=== PATIENT | male | born 1945 | race Caucasian/White ===

== ENCOUNTER 2017-07-22 20:37 | Emergency (ER) | payer MEDICARE ==
[~2017-07-22] VITALS: Ht 177.8 cm; Wt 135.5 kg
[~2017-07-22 20:37] MED LIST: ASPIRIN E.C. 8181 MG PO; CRESTOR40 MG PO; FISH OIL500 MG PO; FORT1000TA PO; LEVEMIR SQ; LISINOPRIL; METFORMIN1000 MG PO; MULTIPLE VITAMI1 CAP PO; NEXIUM 40MG40 MG PO; NOVOLOG 100U100 U/ML SQ; NOVOLOG FLEX100 U/ML SQ; PEPCID 20MG TAB20 MG PO; PRINIVIL40 MG PO; PROSTATE MED; TRIAM OI 0.1 80 TOP; VITAMIN D31000 IU PO
[2017-07-22 20:41] VITALS: TEMP 98.7
[2017-07-22 21:55] LABS: BASO % 0.3 % (0.0-2.0); EOS # 0.1 (0.0-0.7); EOS % 1.6 % (0-4.0); GRAN # 4.5 (1.4-6.5); GRAN % 63.7 % (42.2-75.2); HEMATOCRIT 36.9 % (42.0-52.0); LYMPH # 1.8 (1.2-3.4); MEAN CELL VOLUME 92 fl (80.0-100.0); MEAN CORPUSCULAR HEMOGLOBIN 30 pg (27.0-31.0); MEAN CORPUSCULAR HGB CONC 33 g/dl (33.0-37.0); MEAN PLATELET VOLUME 10.7 fl (7.4-10.4); MONO # 0.6 (0.1-0.6); PLATELET COUNT 143 K/mm3 (130-400); RED BLOOD COUNT 4.01 M/mm3 (4.20-5.60)
[2017-07-22 22:05] LABS: ADJUSTED CALCIUM 9.5 mg/dL (8.4-10.2); ALANINE AMINOTRANSFERASE 42 U/L (21-72); ALKALINE PHOSPHATASE 99 U/L (50-136); ANION GAP 10 mmol/L (7-16); BILIRUBIN,TOTAL 0.6 mg/dL (0.0-1.0); BLOOD UREA NITROGEN 21 mg/dL (9-20); CALCIUM 9.5 mg/dL (8.4-10.2); CARBON DIOXIDE 27 mmol/L (22-30); CHLORIDE 102 mmol/L (98-107); CREATININE, serum 0.75 mg/dL (0.66-1.25); GLUCOSE 143 mg/dL (74-106); POTASSIUM 4.1 mmol/L (3.4-5.0); SODIUM 139 mmol/L (137-145); TOTAL PROTEIN 6.9 gm/dL (6.4-8.2)
[2017-07-22 22:16] LABS: TROPONIN-I < 0.012 ng/mL (0.000-0.034)
[2017-07-22 22:40] VITALS: BP 136/65
[2017-07-22] MEDS ORDERED: ANTIVERT 25MG25 MG PO (23:03)
[2017-07-22 23:28] VITALS: PULSE 80
== END 2017-07-22 23:28 | disposition home or self-care (01) ==
LOC: COL.ER 20:37
PROVIDERS: Emergency Medicine
DX: H81.10 Benign paroxysmal vertigo, unspecified ear (principal); E11.9 Type 2 diabetes mellitus without complications; I10 Essential (primary) hypertension; E66.9 Obesity, unspecified; Z68.41 Body mass index [BMI] 40.0-44.9, adult; Z79.4 Long term (current) use of insulin; Z79.82 Long term (current) use of aspirin
CPT/HCPCS: J2405

== ENCOUNTER 2018-05-03 18:51 | Observation (INO) | payer MEDICARE ==
[~2018-05-03] VITALS: Ht 177.8 cm; Wt 133.8 kg
[~2018-05-03 18:51] MED LIST changes: +ANTIVERT 25MG25 MG PO
[2018-05-03 20:42] LABS: BASO % 0.2 % (0.0-2.0); EOS % 0.4 % (0-4.0); GRAN # 8.4 (1.4-6.5); GRAN % 81.9 % (42.2-75.2); HEMOGLOBIN 12.4 g/dl (13.5-18.0); LYMPH % 10.2 % (20.0-51.0); MEAN CELL VOLUME 92 fl (80.0-100.0); MEAN CORPUSCULAR HEMOGLOBIN 31 pg (27.0-31.0); MEAN CORPUSCULAR HGB CONC 34 g/dl (33.0-37.0); MEAN PLATELET VOLUME 10.9 fl (7.4-10.4); MONO # 0.7 (0.1-0.6); PLATELET COUNT 168 K/mm3 (130-400); RED BLOOD COUNT 4.02 M/mm3 (4.20-5.60); REDCELL DISTRIBUTION WIDTH-CV 13.2 % (11.5-14.5)
[2018-05-03 20:43] LABS: HEMATOCRIT 36.9 % (42.0-52.0)
[2018-05-03 20:51] LABS: ALBUMIN 4.2 gm/dL (3.5-5.0); BILIRUBIN,TOTAL 0.5 mg/dL (0.0-1.0); CALCIUM 9.7 mg/dL (8.4-10.2); POTASSIUM 4.8 mmol/L (3.4-5.0); TOTAL PROTEIN 7.7 gm/dL (6.4-8.2)
[2018-05-03 21:01] LABS: COLLECTION METHOD CLEAN CATCH
[2018-05-03 21:12] LABS: MUCOUS Present /lpf; PH 5 (5-8); SQUAMOUS EPITHELIAL None Seen /hpf; URINE APPEARANCE Clear; URINE BACTERIA None Seen /hpf; URINE BILIRUBIN Negative (NEGATIVE); URINE BLOOD 1+ (NEGATIVE); URINE COLOR Yellow; URINE GLUCOSE 1+ (NEGATIVE); URINE KETONE Negative (NEGATIVE); URINE LEUKOCYTE ESTERASE 2+ (NEGATIVE); URINE NITRATE Negative (NEGATIVE); URINE PROTEIN(semi-quant) Negative (NEGATIVE); URINE UROBILINOGEN Negative (NEGATIVE)
[2018-05-04] VITALS (14 sets, daily range): BP systolic 98–164; BP diastolic 32–79; PULSE 95–117; TEMP 97.8–99.2
[2018-05-05 00:44] VITALS: BP 156/65; PULSE 86; TEMP 98.4
[2018-05-05 04:00] VITALS: BP 149/69; PULSE 85; TEMP 98.3
[2018-05-05 07:35] VITALS: BP 156/72; PULSE 84; TEMP 97.8
[2018-05-05 11:39] VITALS: BP 131/83; PULSE 74; TEMP 97.6
[2018-05-05 16:54] VITALS: BP 99/59; PULSE 86; TEMP 97.9
== END 2018-05-05 18:27 | disposition home or self-care (01) ==
LOC: COL.ER 18:51 → SURG 22:58
PROVIDERS: Emergency Medicine
DX: N20.1 Calculus of ureter (principal); I10 Essential (primary) hypertension; E78.00 Pure hypercholesterolemia, unspecified; E11.9 Type 2 diabetes mellitus without complications; G47.33 Obstructive sleep apnea (adult) (pediatric); Z79.4 Long term (current) use of insulin
CPT/HCPCS: A9284; C1769; C2617; G0378; J0690; J0696; J1100; J1815; J1885; J2270; J2405; J2704; J3010; J7030; Q9967

== ENCOUNTER 2018-06-02 06:26 | Observation (INO) | payer MEDICARE ==
[2018-06-02] VITALS (11 sets, daily range): BP systolic 105–174; BP diastolic 41–80; PULSE 91–104; TEMP 97.7–98.9
[~2018-06-02] VITALS: Ht 177.8 cm; Wt 131.8 kg
[2018-06-02] MEDS ORDERED: VICTOZA6 MG/ML SQ (06:36)
[2018-06-02 07:44] LABS: BASO % 0.2 % (0.0-2.0); EOS % 0.1 % (0-4.0); GRAN # 7.9 (1.4-6.5); GRAN % 83.8 % (42.2-75.2); HEMATOCRIT 38.5 % (42.0-52.0); HEMOGLOBIN 12.8 g/dl (13.5-18.0); LYMPH % 10.1 % (20.0-51.0); MEAN CELL VOLUME 92 fl (80.0-100.0); MEAN CORPUSCULAR HEMOGLOBIN 31 pg (27.0-31.0); MEAN CORPUSCULAR HGB CONC 33 g/dl (33.0-37.0); MONO # 0.5 (0.1-0.6); MONO % 5.4 % (1.7-9.3); PLATELET COUNT 149 K/mm3 (130-400); RED BLOOD COUNT 4.18 M/mm3 (4.20-5.60); REDCELL DISTRIBUTION WIDTH-CV 13.2 % (11.5-14.5)
[2018-06-02 07:56] LABS: ALBUMIN 4.2 gm/dL (3.5-5.0); BILIRUBIN,TOTAL 0.9 mg/dL (0.0-1.0); C-REACTIVE PROTEIN 1.4 mg/dL (0.0-0.9); CALCIUM 9.4 mg/dL (8.4-10.2); CREATININE, serum 0.85 mg/dL (0.66-1.25); POTASSIUM 4.7 mmol/L (3.4-5.0); TOTAL PROTEIN 7.4 gm/dL (6.4-8.2)
[2018-06-02 08:26] LABS: COLLECTION METHOD CLEAN CATCH
[2018-06-02 08:33] LABS: PH 7 (5-8); SQUAMOUS EPITHELIAL None Seen /hpf; URINE APPEARANCE Clear; URINE BACTERIA None Seen /hpf; URINE BILIRUBIN Negative (NEGATIVE); URINE BLOOD 2+ (NEGATIVE); URINE COLOR Straw; URINE GLUCOSE 3+ (NEGATIVE); URINE KETONE 1+ (NEGATIVE); URINE LEUKOCYTE ESTERASE 2+ (NEGATIVE); URINE NITRATE Negative (NEGATIVE); URINE PROTEIN(semi-quant) Negative (NEGATIVE); URINE RBC 20-50 /hpf; URINE UROBILINOGEN Negative (NEGATIVE)
[2018-06-02] MEDS ORDERED: PRINIVIL20 MG PO (08:54)
[2018-06-03 00:33] VITALS: BP 108/50; PULSE 92; TEMP 97.8
[2018-06-03 04:22] VITALS: BP 127/52; PULSE 96; TEMP 98.6
[2018-06-03 08:23] VITALS: BP 120/56; PULSE 93; TEMP 97.9
[2018-06-03 12:05] VITALS: BP 137/54; PULSE 93; TEMP 98.1
== END 2018-06-03 13:28 | disposition home or self-care (01) ==
LOC: COL.ER 06:26 → SURG 09:01
PROVIDERS: Emergency Medicine
DX: N20.1 Calculus of ureter (principal); I10 Essential (primary) hypertension; E11.9 Type 2 diabetes mellitus without complications; E78.00 Pure hypercholesterolemia, unspecified; G47.33 Obstructive sleep apnea (adult) (pediatric)
CPT/HCPCS: C1769; C2617; G0378; J0690; J0696; J1170; J1815; J2270; J2405; J2704; J3010; J7030; Q9967

== ENCOUNTER 2018-08-25 07:55 | Emergency (ER) | payer MEDICARE ==
[~2018-08-25] VITALS: Ht 177.8 cm; Wt 135.5 kg
[~2018-08-25 07:55] MED LIST changes: +PRINIVIL20 MG PO; +VICTOZA6 MG/ML SQ
[2018-08-25] MEDS ORDERED: NOVOLIN N100 U/ML IJ (08:13)
[2018-08-25 08:49] LABS: BASO % 0.3 % (0.0-2.0); EOS # 0.1 (0.0-0.7); EOS % 1.1 % (0-4.0); GRAN % 76.2 % (42.2-75.2); HEMATOCRIT 38.2 % (42.0-52.0); HEMOGLOBIN 12.6 g/dl (13.5-18.0); LYMPH # 1.3 (1.2-3.4); LYMPH % 14.1 % (20.0-51.0); MEAN CELL VOLUME 90 fl (80.0-100.0); MEAN CORPUSCULAR HEMOGLOBIN 30 pg (27.0-31.0); MEAN CORPUSCULAR HGB CONC 33 g/dl (33.0-37.0); MEAN PLATELET VOLUME 11.1 fl (7.4-10.4); MONO # 0.7 (0.1-0.6); MONO % 7.8 % (1.7-9.3); PLATELET COUNT 140 K/mm3 (130-400); RED BLOOD COUNT 4.24 M/mm3 (4.20-5.60); REDCELL DISTRIBUTION WIDTH-CV 13.5 % (11.5-14.5)
[2018-08-25 09:32] LABS: ALBUMIN 3.8 gm/dL (3.5-5.0); BILIRUBIN,TOTAL 0.4 mg/dL (0.0-1.0); C-REACTIVE PROTEIN 1.4 mg/dL (0.0-0.9); CALCIUM 9.6 mg/dL (8.4-10.2); CREATININE, serum 0.84 mg/dL (0.66-1.25); POTASSIUM 4.3 mmol/L (3.4-5.0)
[2018-08-25 10:23] LABS: COLLECTION METHOD CLEAN CATCH
[2018-08-25 10:36] LABS: MUCOUS Present /lpf; PH 5 (5-8); SQUAMOUS EPITHELIAL 0-2 /hpf; URINE APPEARANCE Clear; URINE BACTERIA None Seen /hpf; URINE BILIRUBIN Negative (NEGATIVE); URINE BLOOD Negative (NEGATIVE); URINE COLOR Yellow; URINE GLUCOSE Negative (NEGATIVE); URINE KETONE Negative (NEGATIVE); URINE LEUKOCYTE ESTERASE 1+ (NEGATIVE); URINE NITRATE Negative (NEGATIVE); URINE PROTEIN(semi-quant) 2+ (NEGATIVE)
[2018-08-25] MEDS ORDERED: PRINIVIL20 MG PO (11:06)
[2018-08-25] MEDS ORDERED: DOXYCYCLINE 10100 MG PO (11:06)
[2018-08-25] MEDS ORDERED: CRESTOR40 MG PO (11:06)
[2018-08-25] MEDS ORDERED: AMOXICILLIN 8751 TAB PO (11:06)
[2018-08-25 11:20] VITALS: BP 133/75; PULSE 84; TEMP 97
== END 2018-08-25 11:20 | disposition home or self-care (01) ==
LOC: COL.ER 07:55
PROVIDERS: Emergency Medicine; Physician Assistant
DX: L03.115 Cellulitis of right lower limb (principal); E78.5 Hyperlipidemia, unspecified; N20.0 Calculus of kidney; E11.9 Type 2 diabetes mellitus without complications; N39.0 Urinary tract infection, site not specified; Z79.4 Long term (current) use of insulin; Z79.82 Long term (current) use of aspirin
CPT/HCPCS: J7030

== ENCOUNTER 2019-06-09 18:06 | Observation (INO) | payer MEDICARE ==
[~2019-06-09] VITALS: Ht 177.8 cm; Wt 125.7 kg
[~2019-06-09 18:06] MED LIST changes: +AMOXICILLIN 8751 TAB PO; +DOXYCYCLINE 10100 MG PO; +NOVOLIN N100 U/ML IJ
[2019-06-09 18:23] LABS: BASO % 0.2 % (0.0-2.0); EOS # 0.1 (0.0-0.7); EOS % 1.5 % (0-4.0); GRAN # 5.4 (1.4-6.5); GRAN % 63.8 % (42.2-75.2); HEMATOCRIT 40.7 % (42.0-52.0); HEMOGLOBIN 13.5 g/dl (13.5-18.0); LYMPH # 2.1 (1.2-3.4); LYMPH % 25.1 % (20.0-51.0); MEAN CELL VOLUME 93 fl (80.0-100.0); MEAN CORPUSCULAR HEMOGLOBIN 31 pg (27.0-31.0); MEAN CORPUSCULAR HGB CONC 33 g/dl (33.0-37.0); MEAN PLATELET VOLUME 11.4 fl (7.4-10.4); MONO # 0.8 (0.1-0.6); PLATELET COUNT 164 K/mm3 (130-400); REDCELL DISTRIBUTION WIDTH-CV 12.7 % (11.5-14.5)
[2019-06-09 18:44] LABS: ALANINE AMINOTRANSFERASE 25 U/L (21-72); ALBUMIN 4.4 gm/dL (3.5-5.0); ALKALINE PHOSPHATASE 102 U/L (50-136); ANION GAP 9 mmol/L (7-16); AST,SGOT 30 U/L (15-37); BILIRUBIN,TOTAL 0.4 mg/dL (0.0-1.0); BLOOD UREA NITROGEN 27 mg/dL (9-20); CALCIUM 10.8 mg/dL (8.4-10.2); CARBON DIOXIDE 29 mmol/L (22-30); CHLORIDE 101 mmol/L (98-107); CREATININE, serum 0.98 (0.66-1.25); GLUCOSE 150 mg/dL (74-106); LIPASE 209 U/L (23-300); POTASSIUM 4.6 mmol/L (3.4-5.0); SODIUM 138 mmol/L (137-145); TOTAL PROTEIN 7.5 gm/dL (6.4-8.2)
[2019-06-09 18:51] LABS: C-REACTIVE PROTEIN < 0.5 mg/dL (0.0-0.9)
[2019-06-09 19:33] LABS: COLLECTION METHOD CLEAN CATCH
[2019-06-09 19:41] LABS: MUCOUS Present /lpf; PH 5 (5-8); SQUAMOUS EPITHELIAL 0-2 /hpf; URINE APPEARANCE Clear; URINE BACTERIA None Seen /hpf; URINE BILIRUBIN Negative (NEGATIVE); URINE BLOOD Negative (NEGATIVE); URINE COLOR Yellow; URINE GLUCOSE Negative (NEGATIVE); URINE KETONE Negative (NEGATIVE); URINE LEUKOCYTE ESTERASE Negative (NEGATIVE); URINE NITRATE Negative (NEGATIVE); URINE PROTEIN(semi-quant) Negative (NEGATIVE); URINE RBC 0-2 /hpf; URINE UROBILINOGEN Negative (NEGATIVE)
[2019-06-10] MEDS ORDERED: MUSCLE RELAXER (00:57)
[2019-06-10 01:05] VITALS: BP 110/42; PULSE 74; TEMP 97.9
--- NOTE | 2019-06-10 01:06 | NUR ---
Arrived to medical floor. Assessment completed. INT left Ac without complications at this time. Patient home medications verified-unsure of accuracy. States family would be unable to bring home medications in for verification due to lack of transportation. Will notify ARSH Kay. All questions answered. Orientated to medical floor. Call light in reach.
[2019-06-10] MEDS ORDERED: NOVOLOG 100U100 U/M1 SQ (01:58)
[2019-06-10 04:12] VITALS: BP 102/39; PULSE 84; TEMP 98.4
--- NOTE | 2019-06-10 05:45 | NUR ---
INT left AC leaking. Started in right forearm.
--- NOTE | 2019-06-10 06:20 | NUR ---
Patient had uneventful night. Rating pain at maximum of 4. Slept without difficulty. Denies needs this AM. Call light in reach.
[2019-06-10 06:32] LABS: BASO % 0.2 % (0.0-2.0); EOS # 0.1 (0.0-0.7); EOS % 1.5 % (0-4.0); GRAN # 3.6 (1.4-6.5); GRAN % 58.7 % (42.2-75.2); HEMOGLOBIN 11.7 g/dl (13.5-18.0); LYMPH # 1.9 (1.2-3.4); LYMPH % 30.7 % (20.0-51.0); MEAN CELL VOLUME 93 fl (80.0-100.0); MEAN CORPUSCULAR HEMOGLOBIN 31 pg (27.0-31.0); MEAN CORPUSCULAR HGB CONC 33 g/dl (33.0-37.0); MEAN PLATELET VOLUME 11.4 fl (7.4-10.4); MONO # 0.5 (0.1-0.6); MONO % 8.6 % (1.7-9.3); PLATELET COUNT 124 K/mm3 (130-400); RED BLOOD COUNT 3.79 M/mm3 (4.20-5.60); REDCELL DISTRIBUTION WIDTH-CV 12.8 % (11.5-14.5)
--- NOTE | 2019-06-10 06:59 | NUR ---
Report given to BARBARA Bobby
[2019-06-10 07:04] LABS: HEMATOCRIT 35.4 % (42.0-52.0)
[2019-06-10 07:13] LABS: CALCIUM 9.3 mg/dL (8.4-10.2); CREATININE, serum 0.93 (0.66-1.25)
[2019-06-10 07:27] VITALS: BP 121/53; PULSE 80; TEMP 97.4
--- NOTE | 2019-06-10 10:42 | NUR ---
GIANFRANCO met with the patient to discuss discharge plan. The patient lives in [place] with his two nieces: Helen and Paty Morales. He reports independence with ADLs and has a walker. The patient's PCP is Dr. Lit Weaver and he also receives primary care at the [facility]. He was unsure of which provider he sees there. He receives his medications by mail through the [facility] and he reports no difficulties obtaining his meds. The patient does not have advanced directives completed, but he was interested in obtaining a form for DPOA-HC. GIANFRANCO provided. The patient plans to return home with his nieces. He states that he is in need of transportation and unable to afford a taxi. He states that his nieces do not have a vehicle and that he utilizes the [place] transportation services to get him to PCP appointments. GIANFRANCO to provide him with a taxi voucher. GIANFRANCO also discussed home health services. The patient was not interested in home health at this time. The patient had no other questions or concerns for GIANFRANCO. No additional needs at this time.
[2019-06-10 12:07] VITALS: BP 111/41; PULSE 75; TEMP 98
[2019-06-10 15:11] VITALS: BP 134/48; PULSE 84; TEMP 98
[2019-06-10] MEDS ORDERED: FLOMAX 0.40.4 MG/CAP PO (16:15)
[2019-06-10] MEDS ORDERED: NAPROSYN500 MG PO (16:17)
--- NOTE | 2019-06-10 19:12 | NUR ---
PT DISCHARGE EDUCATION WAS PROVIDED. NO QUESTIONS ASKED. PT HAS HAD NO C/O PAIN THIS SHIFT. THIS NURSE EXPLAINED TO FAMILY PT CARES AND WHAT PROVIDER NOTE SAID.
== END 2019-06-10 18:30 | disposition home or self-care (01) ==
LOC: COL.ER 18:06 → MEDICAL 23:04
PROVIDERS: Family Medicine; Nurse Practitioner Family; ADMIT Student in an Organized Health Care Education/Training Program
DX: M54.5 Low back pain (principal); E83.52 Hypercalcemia; E78.5 Hyperlipidemia, unspecified; E11.9 Type 2 diabetes mellitus without complications; K59.00 Constipation, unspecified; I10 Essential (primary) hypertension; Z90.89 Acquired absence of other organs; Z79.4 Long term (current) use of insulin; Z79.84 Long term (current) use of oral hypoglycemic drugs; Z79.899 Other long term (current) drug therapy
CPT/HCPCS: 99239; G0378; J1650; J1815; J1885; J2270; J2405; J7030; Q9967

== ENCOUNTER 2020-09-30 06:44 | Observation (INO) | payer MEDICARE ==
[~2020-09-30] VITALS: Ht 177.8 cm; Wt 134.1 kg
[~2020-09-30 06:44] MED LIST changes: +FLOMAX 0.40.4 MG/CAP PO; +MUSCLE RELAXER; +NAPROSYN500 MG PO; +NOVOLOG 100U100 U/M1 SQ
[2020-09-30 07:23] LABS: COLLECTION METHOD CLEAN CATCH
[2020-09-30 07:37] LABS: MUCOUS Present /lpf; PH 5 (5-8); SQUAMOUS EPITHELIAL 0-2 /hpf; URINE APPEARANCE Clear; URINE BACTERIA Occasional /hpf; URINE BILIRUBIN Negative (NEGATIVE); URINE BLOOD Negative (NEGATIVE); URINE COLOR Yellow; URINE GLUCOSE 3+ (NEGATIVE); URINE KETONE Negative (NEGATIVE); URINE LEUKOCYTE ESTERASE 2+ (NEGATIVE); URINE NITRATE Negative (NEGATIVE); URINE PROTEIN(semi-quant) Negative (NEGATIVE)
[2020-09-30 09:31] LABS: BASO % 0.2 % (0.0-2.0); EOS # 0.1 (0.0-0.7); EOS % 2.4 % (0-4.0); GRAN # 3.3 (1.4-6.5); GRAN % 57.7 % (42.2-75.2); HEMATOCRIT 37.5 % (42.0-52.0); HEMOGLOBIN 12.3 g/dl (13.5-18.0); LYMPH # 1.7 (1.2-3.4); LYMPH % 30.1 % (20.0-51.0); MEAN CELL VOLUME 92 fl (80.0-100.0); MEAN CORPUSCULAR HEMOGLOBIN 30 pg (27.0-31.0); MEAN CORPUSCULAR HGB CONC 33 g/dl (33.0-37.0); MEAN PLATELET VOLUME 10.9 fl (7.4-10.4); MONO # 0.5 (0.1-0.6); MONO % 8.7 % (1.7-9.3); PLATELET COUNT 145 K/mm3 (130-400); RED BLOOD COUNT 4.07 M/mm3 (4.20-5.60); REDCELL DISTRIBUTION WIDTH-CV 13.1 % (11.5-14.5)
[2020-09-30 10:19] LABS: ALBUMIN 3.5 gm/dL (3.5-5.0); BILIRUBIN,TOTAL 0.6 mg/dL (0.0-1.0); CALCIUM 8.9 mg/dL (8.4-10.2); CREATININE, serum 0.6 (0.66-1.25); POTASSIUM 3.9 mmol/L (3.4-5.0); TOTAL PROTEIN 6.7 gm/dL (6.4-8.2)
[2020-09-30] MEDS ORDERED: PEN-VEE K500 MG PO (10:31)
[2020-09-30] MEDS ORDERED: ANTIVERT 25MG25 MG PO (10:32)
[2020-09-30] MEDS ORDERED: TYLENOL 500MG500 MG PO (10:33)
[2020-09-30] MEDS ORDERED: [UNRECOGNIZED DRUG - OTHER] PO (10:34)
[2020-09-30 11:00] VITALS: BP 148/55; PULSE 85; TEMP 97.8
--- NOTE | 2020-09-30 15:24 | NUR ---
Vancomycin Initial Dosing Pharmacy Note Ordering provider: Bridget Woods MD Indication/duration: CELLULITIS Relevant comorbidities: DIABETES LABS: WBC 5.7, SCr 0.6, CrCl 96 Recommendation: VANCOMYCIN ~10MG/KG Loading dose: 1.5 grams Maintenance dose: 1.5 grams every 12 hours Trough goal: 10-15 ug/mL. TROUGH 10/02 @ 1000
[2020-09-30 15:43] VITALS: BP 136/69; PULSE 102; TEMP 98.1
--- NOTE | 2020-09-30 19:16 | NUR ---
PT ASLEEP ON RIGHT SIDE. SUPPER TRAY EMPTY ON BEDSIDE TABLE. WHITE BOARD UPDATED.
[2020-09-30 19:42] VITALS: BP 109/73; PULSE 100; TEMP 99.9
--- NOTE | 2020-09-30 21:30 | NUR ---
SHIFT ASSESSMENT COMPLETED. PT RESTING QUIETLY. PICC LINE INTACT IN RIGHT UPPER ARM, DOUBLE LUMEN. BILAT LE SEEPING WITH SCATTERED OPEN AREAS. FROM KNEE TO TO BILAT LE DUSKY IN COLOR. DENIES ANY NEEDS. CALL LIGHT IN REACH.
[2020-10-01] VITALS (7 sets, daily range): BP systolic 117–149; BP diastolic 40–60; PULSE 76–97; TEMP 97.1–98.9
--- NOTE | 2020-10-01 02:23 | NUR ---
PT RESTS QUIETLY IN BED. VOICES NO C/O. VANCO 1.5GM HUNG TYLENOL 650MG GIVEN PER PT REQUEST FOR GENERAL DISCOMFORT. PICC LINE WITH DOUBLE LUMEN TO RIGHT UPPER ARM. FLUSHES WELL. SHIFT ASSESSMENT COMPLETED. CALL LIGHT IN REACH.
--- NOTE | 2020-10-01 07:16 | NUR ---
ACCU CK THIS AM 230. REPORTS HE HAD A GOOD NIGHT. VOICES NO C/O DISCOMFORT THIS AM. CALL LIGHT IN REACH.
--- NOTE | 2020-10-01 07:50 | NUR ---
Patient sitting up in bed eating breakfast. Alert and oriented x 3. Assessment complete. Edema to BLE +2 pitting noted. Patient denies pain at this time, BLE weeping noted. Redness below knees, scattered open areas noted. PICC line to GILL without complications denies further needs at this time.
[2020-10-01 07:55] LABS: BASO % 0.2 % (0.0-2.0); EOS # 0.1 (0.0-0.7); EOS % 1.3 % (0-4.0); GRAN # 3.4 (1.4-6.5); GRAN % 56.8 % (42.2-75.2); HEMOGLOBIN 11.3 g/dl (13.5-18.0); LYMPH # 1.8 (1.2-3.4); LYMPH % 30.5 % (20.0-51.0); MEAN CELL VOLUME 93 fl (80.0-100.0); MEAN CORPUSCULAR HEMOGLOBIN 31 pg (27.0-31.0); MEAN CORPUSCULAR HGB CONC 33 g/dl (33.0-37.0); MEAN PLATELET VOLUME 10.9 fl (7.4-10.4); MONO # 0.7 (0.1-0.6); MONO % 10.9 % (1.7-9.3); PLATELET COUNT 152 K/mm3 (130-400); RED BLOOD COUNT 3.71 M/mm3 (4.20-5.60)
[2020-10-01 08:04] LABS: HEMATOCRIT 34.3 % (42.0-52.0)
[2020-10-01 08:05] LABS: CALCIUM 8.4 mg/dL (8.4-10.2); CREATININE, serum 0.63 (0.66-1.25)
--- NOTE | 2020-10-01 14:19 | NUR ---
SW met with patient to complete intake. Patient staes that he lives with his niece Carolann [phone]. Patient states that he uses a walker, but does not need assistance with ADL's. Patient provides that he does not have a PCP at this time, but obtains medications when he needs them from [facility], and is able to afford them at this time. Patient states that he does not have anyone appointed as DPOA and does not wish to appoint anyone at this time. Patient states that his plan is to go home upon DC and does not have any concerns when that time comes. SW will continue to follow.
--- NOTE | 2020-10-01 18:33 | NUR ---
Patient doing well throughout the day. Minimal needs. BLE continue weeping. Denies pain throughout the day. Denies further needs at this time. Will report off to night club manager.
--- NOTE | 2020-10-01 19:20 | NUR ---
PT RESTING ON RIGHT SIDE WATCHING TV. BILAT LE OPEN TO AIR AND SEEPING. REPORT RECEIVED FROM DAY SHIFT NURSE. CALL LIGHT IN REACH.
[2020-10-02 03:45] VITALS: BP 125/49; PULSE 78; TEMP 97.5
[2020-10-02 07:00] LABS: BASO % 0.4 % (0.0-2.0); EOS # 0.2 (0.0-0.7); EOS % 2.7 % (0-4.0); GRAN # 3.1 (1.4-6.5); GRAN % 55.9 % (42.2-75.2); HEMOGLOBIN 11.3 g/dl (13.5-18.0); LYMPH # 1.7 (1.2-3.4); LYMPH % 30.5 % (20.0-51.0); MEAN CELL VOLUME 93 fl (80.0-100.0); MEAN CORPUSCULAR HEMOGLOBIN 31 pg (27.0-31.0); MEAN CORPUSCULAR HGB CONC 33 g/dl (33.0-37.0); MEAN PLATELET VOLUME 10.7 fl (7.4-10.4); MONO # 0.6 (0.1-0.6); PLATELET COUNT 147 K/mm3 (130-400); RED BLOOD COUNT 3.71 M/mm3 (4.20-5.60); REDCELL DISTRIBUTION WIDTH-CV 12.9 % (11.5-14.5)
[2020-10-02 07:03] LABS: HEMATOCRIT 34.4 % (42.0-52.0)
[2020-10-02 07:12] LABS: CALCIUM 8.3 mg/dL (8.4-10.2); CREATININE, serum 0.57 (0.66-1.25); POTASSIUM 4.2 mmol/L (3.4-5.0)
[2020-10-02 08:04] VITALS: BP 125/62; PULSE 88; TEMP 98
--- NOTE | 2020-10-02 09:06 | NUR ---
Patient alert and oriented, answers questions appropriately. See assessment. BLE with edema, cellulitis, redness and weeping. 1+ pulses to BLE, no numbness or tingling. No c/o pain or discomfort. No other c/o at this time.
[2020-10-02] MEDS ORDERED: LASIX 20MG TABL20 MG PO (09:25)
[2020-10-02] MEDS ORDERED: LEVEMIR100 U/ML SQ (09:26)
[2020-10-02] MEDS ORDERED: NOVOLOG 100U100 U/M1 SQ (09:28)
[2020-10-02] MEDS ORDERED: DOXYCYCLINE 10100 MG PO (09:28)
--- NOTE | 2020-10-02 09:58 | NUR ---
Aquacel A Advantage and coban applied to BLE. No c/o at this time.
[2020-10-02 12:32] VITALS: BP 96/63; PULSE 95; TEMP 98.3
--- NOTE | 2020-10-02 13:17 | NUR ---
Patient is being discharged home today 10/02 with home health services. SW spoke with patient regarding transportation. Cab voucher was provided to patient. Patient chose [facility] first, [facility] second, and [facility]. Referrals were sent to all three. [facility] did not answer, and [facility] decline. [facility] has accepted patient. There are no new needs at this time.
--- NOTE | 2020-10-02 13:37 | NUR ---
PICC line removed from RUE. Education provided post removal. No c/o at this time.
--- NOTE | 2020-10-02 15:49 | NUR ---
Discharge instructions reviewed with patient, verbalized understanding. Paperwork for home health, labs and venous studies sent with patient. Discharged via wheelchair to auto/home via taxi at 1550.
--- NOTE | 2020-10-03 10:00 | NUR ---
print binding worker spoke with Daysi at [facility] and provided niece's phone number. Daysi states [facility] [place] to see if they will follow patient for home health as patient was last seen in their clinic in March. Patient hasn't seen any other provider as primary care.
== END 2020-10-02 15:50 | disposition home or self-care (01) ==
LOC: COL.ER 06:44 → JCC 09:55
PROVIDERS: Family Medicine; ADMIT Student in an Organized Health Care Education/Training Program
DX: L03.116 Cellulitis of left lower limb (principal); L03.115 Cellulitis of right lower limb; E11.9 Type 2 diabetes mellitus without complications; I10 Essential (primary) hypertension; N39.0 Urinary tract infection, site not specified; E78.5 Hyperlipidemia, unspecified; R82.90 Unspecified abnormal findings in urine; Z79.4 Long term (current) use of insulin; Z90.89 Acquired absence of other organs; Z79.899 Other long term (current) drug therapy
CPT/HCPCS: 99232-AI; 99239; C1751; G0378; J1650; J1815; J1940; J3370; J7030; J7050

== ENCOUNTER 2021-06-29 09:32 | Emergency (ER) | payer MEDICARE ==
[~2021-06-29] VITALS: Ht 177.8 cm; Wt 86.4 kg
[~2021-06-29 09:32] MED LIST changes: +LASIX 20MG TABL20 MG PO; +LEVEMIR100 U/ML SQ; +PEN-VEE K500 MG PO; +TYLENOL 500MG500 MG PO; +[UNRECOGNIZED DRUG - OTHER] PO
[2021-06-29 10:29] VITALS: BP 160/72; TEMP 97.9
[2021-06-29 13:36] LABS: BASO % 0.2 % (0.0-2.0); EOS # 0.1 K/mm3 (0.0-0.7); EOS % 1.5 % (0-4.0); GRAN # 3.5 K/mm3 (1.4-6.5); GRAN % 64.4 % (42.2-75.2); LYMPH # 1.5 K/mm3 (1.2-3.4); LYMPH % 27.1 % (20.0-51.0); MEAN CELL VOLUME 90 fl (80.0-100.0); MEAN CORPUSCULAR HEMOGLOBIN 30 pg (27.0-31.0); MEAN CORPUSCULAR HGB CONC 33 g/dl (33.0-37.0); MEAN PLATELET VOLUME 10.8 fl (7.4-10.4); MONO # 0.4 K/mm3 (0.1-0.6); MONO % 6.4 % (1.7-9.3); PLATELET COUNT 159 K/mm3 (130-400); RED BLOOD COUNT 4.65 M/mm3 (4.20-5.60); REDCELL DISTRIBUTION WIDTH-CV 13.3 % (11.5-14.5)
[2021-06-29 13:55] LABS: ALBUMIN 4.6 gm/dL (3.4-4.8); BILIRUBIN,TOTAL 0.8 mg/dL (0.2-1.2); C-REACTIVE PROTEIN 0.14 mg/dL (0.00-0.50); CALCIUM 10.2 mg/dL (8.4-10.2); CREATININE, serum 0.85 mg/dL (0.72-1.25); POTASSIUM 4.3 mmol/L (3.5-4.5); TOTAL PROTEIN 8.7 gm/dL (6.2-8.1)
[2021-06-29 14:12] LABS: ERYTHROCYTE SEDIMENTATION RATE 18 mm/hr (0-30)
[2021-06-29 16:30] VITALS: PULSE 87
== END 2021-06-29 16:30 | disposition home or self-care (01) ==
LOC: COL.ER 09:32
PROVIDERS: Physician Assistant
DX: E11.40 Type 2 diabetes mellitus with diabetic neuropathy, unspecified (principal); I87.8 Other specified disorders of veins; I87.2 Venous insufficiency (chronic) (peripheral); I10 Essential (primary) hypertension; E66.9 Obesity, unspecified; Z68.27 Body mass index [BMI] 27.0-27.9, adult; Z79.4 Long term (current) use of insulin; Z79.84 Long term (current) use of oral hypoglycemic drugs; Z79.899 Other long term (current) drug therapy
CPT/HCPCS: A6456